=== PATIENT | female | born 1975 | race Two or more races ===

== ENCOUNTER 2021-02-17 06:58 | Outpatient (CLI) | payer OTHER, BC | END 2021-02-17 23:59 | disposition home or self-care (01) | LOC: CFH 06:58 | PROVIDERS: ATTEND Family Medicine | DX: N63.32 Unspecified lump in axillary tail of the left breast (principal) | CPT/HCPCS: 76642; 77062; 77066; G0279 ==

== ENCOUNTER → 2021-02-27 | Outpatient (CLI) | payer OTHER, BC | END | disposition home or self-care (01) | LOC: CFH 07:26 | PROVIDERS: ATTEND Family Medicine | DX: R92.8 Other abnormal and inconclusive findings on diagnostic imaging of breast (principal); N62 Hypertrophy of breast | CPT/HCPCS: 19083; 38505; 76942; 77065; 88305; 88341; 88342; J0690; J1100; J1885; J2250; J2405; J2704; J3010; J3490 ==